=== PATIENT | female | born 1930 | race Caucasian/White ===

== ENCOUNTER → 2016-12-14 | Outpatient (CLI) | payer OTHER ==
[~2016-12-14] VITALS: Ht 162.6 cm; Wt 61.9 kg
[~2016-12-14] MED LIST: BUPRENORPHINE HC2 MG SL; BUTRANS1 EAC1 TD; CELEBREX 200 M200 MG PO; FLEXERIL PO; FOSAMAX 70 MG T70 MG PO; HALCION0.125 MG PO; LEVOTHYROXIN0.025 MG PO; MEDROLDOSEPACK PO; MULTIVITAMINS PO; NORCO 5-325 TA1 EACH PO; PROLIA60 MG/1 ML SQ; TIZANIDINE HCL4 MG PO
--- NOTE | ~2016-12-14 | HPC ---
[facility] [address] [place] [address] PAIN MANAGEMENT CONSULTATION Name: VILLATOROJIMENA A Room #: REG [facility].#: [id number] Admission: 12/14/16 Attend Phys: Andres Oconnor DO Discharge: Date of : 32 Report #: [id number] THIS REPORT FOR: //name// CC: Andres Scanlon DO DATE OF SERVICE: 12/14/2016 REFERRING PHYSICIAN: Perez Scanlon DO CHIEF COMPLAINT: Neck pain and upper back pain. HISTORY OF PRESENT ILLNESS: As you know, the patient is a very pleasant 86-year-old female who returns today in followup visit with complaints of chronic neck pain, upper back pain and bilateral shoulder pain. She indicates the pain sometimes is so intense, it climbs from the neck over the occiput towards the right ear. She indicates pain is aching, shooting and intermittent, describes pain level of 4/10, exacerbated with turning her head, improves with rest and medications. She has been referred back to our clinic to discuss chronic neck pain. ALLERGIES: No known drug allergies. CURRENT MEDICATIONS: Hydrocodone, cyclobenzaprine, multivitamin, Prolia, and levothyroxine. SOCIAL HISTORY: The patient denies tobacco, IV or illicit drug use. Admits to one alcoholic beverage per day. She is accompanied by her . She retired approximately 16 years ago. IMAGING: No new imaging available. PHYSICAL EXAMINATION: VITAL SIGNS: Blood pressure 146/80, pulse 66, respiratory rate 14, unlabored. The patient is 98% on room air. Height 5 feet 4 inches tall, weight 136.4 pounds, BMI calculated 23.4. GENERAL: Well-developed, well-nourished, well-hydrated 86-year-old female. She appears stated age, placing pain score today around 4/10. HEENT: Normocephalic and atraumatic. Pupils equal, round, reactive to light. Extraocular muscles are intact. Sclerae nonicteric without injection. NEUROLOGIC: Cranial nerves 2-12 grossly intact. Speech is fluent. The patient deemed an excellent historian. LUNGS: Clear. No wheeze, rhonchi or rales. CARDIOVASCULAR: Regular. No appreciable gallop or rub. ABDOMEN: Soft, nontender, nondistended. [address] [address] PAIN MANAGEMENT CONSULTATION Name: JIMENA VILLATORO Layla Room #: REG [facility].#: [id number] Admission: 12/14/16 Attend Phys: Andres Oconnor DO Discharge: Date of : 32 Report #: [id number] EXTREMITIES: Show no clubbing, no cyanosis, no edema. MUSCULOSKELETAL: Cervical provocation test including extension, rotation, lateral flexion all intensify neck pain. Slight forward flexion of the cervical spine does improve symptoms slightly. There is palpatory tenderness throughout the cervical region. No specific trigger points. Deep palpation in the upper cervical region causes intensification of pain that radiates mainly on the right side towards the lesser and greater occipital distribution. Upper extremity strength does appear equal and symmetrical. Spurlings test is negative. ASSESSMENT: 1. 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 2. Third occipital neuralgia. 3. Chronic intractable pain. PLAN: 1. The patient and I have had a long discussion today about the findings from physical exam. I believe her symptoms are related to cervical facet arthropathy with a component of third occipital neuralgia which is the sensation that the patient is experiencing radiating from the neck over the occiput and into the postauricular area. The patient and I did discuss at length the treatment options that are available for cervical generated pain. The conservative options tend to be the most practical in these kinds of cases. We discussed that changes need to be made in the pillow that she uses, recommending a contour pillow to adjust based on positioning. This has been an excellent treatment placing the cervical spine in more anatomical alignment during sleep, which typically resolves symptoms quite quickly. She will change out her pillow immediately. We also discussed medication changes to address facet arthropathy of the cervical spine. We also discussed medial branch nerve blocks, radiofrequency lesioning as more aggressive treatments. After reviewing risks and benefits of all the proposed treatment options, the patient chose to begin with conservative treatment. 2. The patient will be sent for x-ray imaging of the cervical spine. I wish to further evaluate the cervical region for the amount of arthritic changes that may be there. Given her age and her long-term pain generation, I assume moderate to severe facet changes will be noted, we will review the x-ray imaging once it is available and discussed with the patient the findings. 3. The patient will be started on Medrol Dosepak. This will provide good and immediate prolonged analgesia. She will start with Medrol Dosepak this evening. I did advise the patient to watch for side effects of insomnia, weight gain and flushing. She will begin this medication as quickly as possible. She was given this prescription with no refills. 4. We will start the patient on tizanidine 4 mg dose 1 tab p.o. q. 8 hours p.r.n. muscle spasms. I have given the patient #90 tablets, advised the patient to take the medication at home initially confirm that she is not sleepy, disoriented or confused with it. If she is doing well, then she can continue this three times a day. This is added for muscle spasming. [facility] [address] [place] [address] PAIN MANAGEMENT CONSULTATION Name: JIMENA VLILATORO [facility] [id number] Admission: 12/14/16 Attend Phys: Andres Oconnor DO Discharge: Date of : 32 Report #: [id number] 5. The patient was provided a prescription of hydrocodone 5/325 one tab p.o. q. 8 hours p.r.n for pain, given the patient #60 tablets, advised the patient to take this medication only when pain is intolerable, not to rely on the medication prophylactically. 6. The patient will contact our clinic about the findings of her x-ray imaging. We will trial this conservative treatment with the changes in pillow and medications and have her return in 2 weeks. If symptoms have not improved, we would recommend the discussion of intraarticular facet injections and third occipital nerve blocks possibility of moving towards radiofrequency lesioning. <ELECTRONICALLY SIGNED> By: Andres Oconnor DO 12/26/16 [id number] Andres Oconnor DO /nt
[2016-12-14 09:36] VITALS: BP 146/80
== END | disposition home or self-care (01) ==
LOC: PAIN 07:07
DX: M47.812 Spondylosis without myelopathy or radiculopathy, cervical region (principal); M54.81 Occipital neuralgia; G89.29 Other chronic pain

== ENCOUNTER → 2017-03-29 | Outpatient (CLI) | payer OTHER ==
[~2017-03-29] VITALS: Ht 162.6 cm; Wt 60.5 kg
--- NOTE | ~2017-03-29 | HPC ---
[facility] [address] [place] [address] PAIN MANAGEMENT CONSULTATION Name: JIMENA VILLATORO Room #: REG [facility] Tod#: [id number] Admission: 03/29/17 Attend Phys: Andres Oconnor DO Discharge: Date of : 32 Report #: [id number] THIS REPORT FOR: //name// CC: Andres Galindo DATE OF SERVICE: 03/29/2017 CHIEF COMPLAINT: Low back pain, lower extremity pain with paresthesias. HISTORY OF PRESENT ILLNESS: As you know, the patient is a very pleasant 86-year-old female who returns today in followup visit requesting epidural injection under fluoroscopic guidance. The patient states she has been quite active of late and her back pain has returned. As you are aware, we saw the patient initially for low back pain, lower extremity pain and paresthesias, diagnosed as a lumbar radiculopathy. We have been following the patient recently for neck pain, but now her symptoms have returned in the low back and she has requested epidural injection under fluoroscopic guidance to address these issues. She denies specific injury or trauma that may have led to symptoms. She is placing pain score anywhere from 1-7/10 depending on activity, lying down, walking and activities tend to exacerbate symptoms; rest, medications appear to improve pain. Majority of pain begins in low back, radiates down the left leg. ALLERGIES: SULFA. CURRENT MEDICATIONS: Hydrocodone, cyclobenzaprine, multivitamin, Prolia, levothyroxine. SOCIAL HISTORY: The patient denies tobacco, alcohol, IV or illicit drug use. She is accompanied by her . IMAGING: No new imaging available. PHYSICAL EXAMINATION: VITAL SIGNS: Blood pressure 120/68, pulse 70, respiratory rate 16, unlabored. The patient is 98% on room air. Height 5 feet 4 inches tall, weight 133.4 pounds, BMI calculated at 22.9. GENERAL: Well developed, well nourished, well hydrated 86-year-old female appearing stated age, placing current pain score at 1 to 7/10. HEENT: Normocephalic, atraumatic. Pupils equal, round, reactive to light. EXTREMITIES: Show no clubbing, no cyanosis, no edema. MUSCULOSKELETAL: Seated straight leg raising negative. Supine straight leg raising positive on left. Jessie test negative. Modified Gaenslen's positive for axial low back pain. [facility] [address] [place] [address] PAIN MANAGEMENT CONSULTATION Name: JIMENA VILLATORO Layla Room #: REG CLI [facility] [place]#: [id number] Admission: 03/29/17 Attend Phys: Andres Oconnor DO Discharge: Date of : 32 Report #: [id number] ASSESSMENT: 1. Symptomatic lumbar radiculopathy. 2. Spinal stenosis of the lumbar spine. 3. Displacement of lumbar intervertebral disk with radiculopathy. 4. Lumbosacral spondylosis with radiculopathy. 5. Lumbar degeneration. 6. Chronic intractable pain. PLAN: 1. The patient returns today in followup visit requesting epidural injection under fluoroscopic guidance. The patient has done very well with previous epidural injections, hopeful to see similar improvement today. She has been advised risks and benefits of procedure, states she understood and wished to proceed. The patient denies any new injury, new trauma that may have led to symptoms. I do feel that her symptom recurrence is due to the increasing activity that she has done over the past couple of weeks. The symptoms that she is experiencing do appear to be radicular in origin. I do feel this epidural injection would be beneficial. 2. No medication changes were made at today's visit. The patient to continue current medical therapy as previously prescribed. 3. The patient will return to our clinic on an as-needed basis for possible repeat epidural injection and discuss other treatment options. PROCEDURE NOTE DESCRIPTION OF PROCEDURE: L5-S1 left paramedian epidural steroid injection under fluoroscopic guidance. After obtaining written consent, the patient was taken back to fluoroscopy suite, placed in prone position with pillow under abdomen to decrease lumbar lordosis. Skin overlying lumbosacral area prepped and draped in aseptic fashion. Lumbar intervertebral spaces were identified by AP fluoroscopy. Skin and subcutaneous tissue overlying target site of injection was anesthetized with 3 mL of 1% lidocaine. A 20-gauge 3-1/2 inch Tuohy needle advanced under fluoroscopic guidance towards the epidural space using a left paramedian approach. Epidural space identified using loss of resistance to air technique. After negative aspiration for heme or cerebrospinal fluid, 1 mL of Omnipaque was injected. Lumbar epidurogram was confirmed using both AP and lateral fluoroscopy. After negative aspiration for heme or cerebrospinal fluid, 5 mL of a solution containing 2 mL 40 mg per mL, 80 mg total triamcinolone, 3 mL lidocaine 1% injected slowly. Needle retracted fdc, needle tract flushed 3 mL 1% lidocaine. Needle then removed. Sterile bandage placed over injection site. No new motor deficits present in the lower extremity following the procedure. [facility] [address] [place] [address] PAIN MANAGEMENT CONSULTATION Name: JIMENA VILLATORO Room #: REG NADEEM AguayoNate#: [id number] Admission: 03/29/17 Attend Phys: Andres Oconnor DO Discharge: Date of : 32 Report #: [id number] The patient tolerated procedure well, carefully escorted to the recovery in stable condition. No apparent complications. After meeting discharge criteria, the patient discharged home. By: [id number] Andres Oconnor DO /nt
[2017-03-29 08:44] VITALS: BP 120/68
== END ==
LOC: PAIN 06:47
DX: M47.27 Other spondylosis with radiculopathy, lumbosacral region (principal); M79.662 Pain in left lower leg; M51.16 Intervertebral disc disorders with radiculopathy, lumbar region

== ENCOUNTER → 2021-05-18 | Outpatient (CLI) | payer OTHER ==
[~2021-05-18] VITALS: Ht 160 cm; Wt 59.0 kg
[~2021-05-18] MED LIST changes: +CALCIUM PO; +HALCION0.25 MG PO; -LEVOTHYROXIN0.025 MG PO; +LIPITOR40 MG PO; +PROTONIX40 M2 PO; +SYNTHROID75 MC1 PO; +TOPROL XL25 MG PO; +VITAMIN C1000 MG PO; +VITAMIN D2 PO
[2021-05-18 08:59] VITALS: BP 151/76
--- NOTE | 2021-05-18 09:20 | NUR ---
Pain Clinic Assessment: 1. History of Osteoarthritis: * History of Rheumatoid Arthritis: Not Applicable 2. Height: 5 ft. 3 in. 160.0 cm. Weight: 130.0 lb. oz. 58.968 kg. Patient's BMI: 23.0 3. Vital Signs: BP: 151/76 Pulse: 60 Resp: 16 Temp: 02 Sat: 100 ECG Mon: 4. Pain Intensity: 3 5. Fall Risk: Dizziness: N Needs help standing or walking: N Fallen in the last 3 months: N Fall risk comments: 6. Patient on Blood Thinner: None 7. History of Hypertension: Y 8. Opioid Therapy greater than 6 weeks: Y Opiate Contract Signed: 9. Risk Assessment Tool Provided: LOW 10. Functional Assessment Tool: 11. Recreational Drug Use: Never Drug Type: Tobacco Use: Never Smoker Tobacco Type: Amount or Packs/day: How Many Years: Alcohol Use: Yes Frequency: Weekly Quant: 4-5
--- NOTE | 2021-05-19 07:43 | HPC ---
[facility] [place] [address] [place] [address] PAIN MANAGEMENT CONSULTATION Name: JIMENA VILLATORO Room #: REG NADEEM PierceNateAnnettaNate#: [id number] Admission: 05/18/21 Attend Phys: Andres Oconnor DO Discharge: Date of : 32 Report #: [id number] THIS REPORT FOR: cc: Perez Scanlon Timothy C. DO Johnson, James E. DO ~ DOC #: [id number] cc: DO Andres Lee DO DATE OF SERVICE: 05/18/2021 CHIEF COMPLAINT: Low back pain, bilateral lower extremity pain with paresthesias. HISTORY OF PRESENT ILLNESS: As you know, the patient is a very pleasant 89-year-old female returning in followup visit per the request of her primary care physician, Dr. Perez Scanlon to address low back pain, bilateral lower extremity pain with paresthesias. The patient has undergone epidural injections under fluoroscopic guidance in 2017 to address lumbar radicular symptoms with good efficacy. The patient has been lost to follow up visit since that time. She returns today as a new consult to discuss treatment options for recurrent low back pain, bilateral lower extremity pain with paresthesias. She reports she had new imaging obtained on 05/04/2021, which prompted the referral back to our clinic. She reports pain today at a level of 10/10 at its worst. She indicates no injury or trauma. Today, the patient reports pain is continuous. She describes the pain as shooting, cramping, aching, throbbing, sharp, stabbing, numbness and tingling. Places current pain score up to 10/10 daily average anywhere from 3-10/10, worst pain has been is 10/10. The patient states pain is exacerbated with lying down tends to worsen in the evening hours. It does lead to some weakness in the lower extremities. She has been referred to our clinic to discuss interventional treatment options to address suspected lumbar radiculopathy. PAST MEDICAL HISTORY: 1. Hypothyroidism. 2. Osteoporosis. 3. GERD. 4. Hypertension. 5. Dyslipidemia. 6. Insomnia. PAST SURGICAL HISTORY: None. SOCIAL HISTORY: The patient denies tobacco, alcohol or IV or illicit drug use. She is unaccompanied today. She is retired years ago. She is not in [place] [address] PAIN MANAGEMENT CONSULTATION Name: IRVINGJIMENA A Room #: REG NADEEM Baron#: [id number] Admission: 05/18/21 Attend Phys: Andres Oconnor DO Discharge: Date of : 32 Report #: [id number] in regards to her pain. IMAGING: MRI of the lumbar spine obtained on 05/04/2021 shows T2-L1 with a marked disk narrowing, moderate size central disk protrusion with effacement of the ventral thecal sac with minimal extradural mass effect upon the distal cord and conus. No cord edema. L1-2 disk space narrowing, posterior disk protrusion, no central canal neural foraminal stenosis L2-3, shows no central canal neural foraminal stenosis L4-5, marked disk narrowing, posterior degenerative changes of the disk with bulge, moderate degenerative changes. Canal shows mild central narrowing, neural foramen are normal. L4-5 disk narrowing and desiccation ,generalized posterior degenerative changes, moderate degenerative arthritis. No definitive central canal neural foraminal stenosis L5-S1, disk narrowing, disk desiccation. No central canal. No neural foraminal stenosis. PQRS: The patient has known arthritic changes of the cervical spine, lumbar spine. No rheumatoid arthritis. She is placing current pain intensity anywhere from 3-10/10. She is not a fall risk, has not had a fall in last 3 months. She is not on blood thinners, but is treated for hypertension. She is on chronic opioids, has a low opioid addiction potential. Pain impact 13 of 70 due to pain. PHYSICAL EXAMINATION VITAL SIGNS: Blood pressure 151/76, pulse 60, respiratory rate 16 and unlabored. The patient 100% on room air. Height 5 feet 3 inches tall, weight 130 pounds, BMI calculated 23.0. GENERAL: Well-developed, well-nourished, well-hydrated 89-year-old female appearing stated age, pain is rated today 3-10/10. HEENT: Normocephalic, atraumatic. Pupils equal, round and responsive. She is wearing a mask in compliance with COVID-19 regulations. LUNGS: Clear, no wheeze, rhonchi or rales. CARDIOVASCULAR: Regular. No appreciable gallop, no rub. ABDOMEN: Soft, nontender. EXTREMITIES: Show no clubbing, no cyanosis, no edema. MUSCULOSKELETAL: Lower extremity strength appears symmetrical 5/5. Muscle bulk and tone equal and symmetrical comparing lower extremities. Seated straight leg raising negative. Supine straight leg raising positive on the left, negative on right. Jessie's test is negative. Modified Gaenslen's positive for axial low back pain. She is intact to light touch from L1 through S2 dermatomes. Babinski is negative. Ankle clonus negative. Lumbar provocation testing is met with slight increase in pain. ASSESSMENT: 1. Symptomatic lumbar radiculopathy. 2. Displacement of lumbar intervertebral disk with radiculopathy. 3. Central canal stenosis of lumbar spine. [facility] [address] [place] [address] PAIN MANAGEMENT CONSULTATION Name: IRVINGJIMENA Room #: REG NADEEM Tod#: [id number] Admission: 05/18/21 Attend Phys: Andres Oconnor DO Discharge: Date of : 32 Report #: [id number] 4. Lumbar degeneration. PLAN: 1. Based on today's physical exam and the history, the patient provides, the distribution, the patient is experiencing pain upon as well as the descriptors, the patient uses in regards to pain and what appears she is suffering from lumbar radiculopathy. We discussed with the patient the findings of her MRI and discussed the findings of her physical exam. After this discussion, we then conversed about the treatment options, we have available. Following was discussed with the patient today. We discussed physical therapy, stretching exercises and core strengthening as a treatment approach. We discussed medication management utilizing nonsteroidal anti-inflammatories and neuropathic pain medications such as amitriptyline, nortriptyline, Cymbalta, Lyrica or gabapentin. We discussed epidural injections under fluoroscopic guidance, spinal cord stimulator therapy and ultimately surgical decompression. After reviewing risks and benefits of all proposed treatment options, the patient requested to begin with a lumbar epidural injection under fluoroscopic guidance. 1. The patient has been advised risks and benefits of a lumbar epidural injection. These risks include but are not necessarily limited to bleeding, bruising, infection, worsening pain, no relief of pain, also risk of temporary or permanent muscle weakness, temporary or permanent nerve damage, possible paralysis, post-dural puncture headache and . The patient states understood and wished to proceed. 2. No medication changes made at today's visit. The patient will continue current medical therapy as prior prescribed. 3. We will see the patient back in followup visit on an as needed basis for the next in the series of epidural injections. We did place the patient on a tentative schedule of 1 month from today. If she is doing well, she can cancel that appointment. Otherwise, we will see her back in 30 days. PROCEDURE NOTE DESCRIPTION OF PROCEDURE: L5-S1 left parasagittal epidural steroid injection under fluoroscopic guidance. This is the first procedure of the first series that the patient is undergoing. After obtaining written consent, the patient was taken back to the fluoroscopy suite, placed in a prone position with pillow under the abdomen to decrease lumbar lordosis. The skin overlying the lumbosacral area was then prepped and draped in aseptic fashion. The L5-S1 vertebral interspace was then identified by AP fluoroscopy. The skin and subcutaneous tissue overlying the target site of injection was anesthetized with 3 mL 1% lidocaine. [address] [address] PAIN MANAGEMENT CONSULTATION Name: JIMENA VILLATORO Room #: REG NADEEM Baron#: [id number] Admission: 05/18/21 Attend Phys: Andres Oconnor DO Discharge: Date of : 32 Report #: [id number] A 20 gauge 3.5 inch Tuohy needle was then advanced under fluoroscopic guidance towards the epidural space using a left parasagittal approach. The epidural space was identified using loss of resistance to air technique. After negative aspiration for heme or cerebrospinal fluid, a total of 1 mL of Omnipaque was injected. A lumbar epidurogram was confirmed using both AP and lateral fluoroscopy. After negative aspiration for heme or cerebrospinal fluid, 5 mL of a solution containing 2 mL 40 mg per mL 80 mg total triamcinolone along with 3 mL of lidocaine 1% was injected in increments. Contrast spread was noted on posterior epidural space. The needle was then retracted approximately half way and needle tract flushed with 1 mL of 1% lidocaine. Needle was then removed. There were no apparent sensory or motor deficits in the lower extremity following the procedure. A sterile bandage was placed over the injection site. The heart rate, pulse, oximetry and blood pressure were continuously monitored after the procedure. There were no apparent complications. The patient tolerated the procedure well and was carefully escorted to the recovery room in stable condition. There were no apparent complications. After meeting discharge criteria, the patient was then discharged home. Andres Oconnor DO JEJ/BULMARO <ELECTRONICALLY SIGNED> By: Andres Oconnor DO 05/19/21 [id number] [id number] Andres Oconnor DO /nt
== END | disposition home or self-care (01) ==
LOC: PAIN 06:49
PROVIDERS: ATTEND Anesthesiology Pain Medicine
DX: M51.16 Intervertebral disc disorders with radiculopathy, lumbar region (principal); M48.061 Spinal stenosis, lumbar region without neurogenic claudication; G89.29 Other chronic pain; I10 Essential (primary) hypertension; E78.5 Hyperlipidemia, unspecified; E03.9 Hypothyroidism, unspecified; K21.9 Gastro-esophageal reflux disease without esophagitis; M81.0 Age-related osteoporosis without current pathological fracture; G47.00 Insomnia, unspecified; Z98.890 Other specified postprocedural states; Z79.899 Other long term (current) drug therapy

== ENCOUNTER → 2021-09-21 | Outpatient (CLI) | payer OTHER ==
[~2021-09-21] VITALS: Ht 160 cm; Wt 56.7 kg
[2021-09-21 09:26] VITALS: BP 134/67
--- NOTE | 2021-09-21 09:33 | NUR ---
Pain Clinic Assessment: 1. History of Osteoarthritis: HANDS History of Rheumatoid Arthritis: Not Applicable 2. Height: 5 ft. 3 in. 160.0 cm. Weight: 125.0 lb. oz. 56.700 kg. Patient's BMI: 22.1 3. Vital Signs: BP: 134/67 Pulse: 64 Resp: 18 Temp: 02 Sat: 98 ECG Mon: 4. Pain Intensity: 4/5 5. Fall Risk: Dizziness: N Needs help standing or walking: N Fallen in the last 3 months: Y Fall risk comments: 6. Patient on Blood Thinner: None 7. History of Hypertension: Y 8. Opioid Therapy greater than 6 weeks: Y Opiate Contract Signed: 9. Risk Assessment Tool Provided: LOW 10. Functional Assessment Tool: 11. Recreational Drug Use: Never Drug Type: Tobacco Use: Never Smoker Tobacco Type: Amount or Packs/day: How Many Years: Alcohol Use: Yes Frequency: Daily Quant: ONE DRINK IN THE EVENING
--- NOTE | 2021-09-22 08:08 | HPC ---
[address] [address] PAIN MANAGEMENT CONSULTATION Name: JIMENA VILLATORO Room #: REG NADEEM AguayoNate#: [id number] Admission: 09/21/21 Attend Phys: Andres Oconnor DO Discharge: Date of : 34 Report #: [id number] THIS REPORT FOR: cc: Perez Scanlon,Andres Juares DO ~ cc: Perez Scanlon DO DATE OF SERVICE: 09/21/2021 REFERRING PHYSICIAN: Dr. Perez Scanlon. CHIEF COMPLAINT: Low back pain, bilateral lower extremity pain with paresthesias. HISTORY OF PRESENT ILLNESS: As you know, the patient is a very pleasant 89-year-old female, returning in followup visit, requesting a lumbar epidural injection under fluoroscopic guidance. The patient reports previous lumbar epidural injection provided at our last visit, gave improvement in symptoms of 95%, lasting for nearly 2 months. Unfortunately, the patient's symptoms have re-occurred. There has been no inciting injury or trauma. She returns today, requesting the next in a series of lumbar epidural injections to address residual pain for which she places symptoms at anywhere from 4-5/10. The patient reports no changes in medication management since her last visit that will preclude her from trialing an epidural injection today. ALLERGIES: SULFA. CURRENT MEDICATIONS: Halcion, ascorbic acid, vitamin D3, calcium, atorvastatin, metoprolol, pantoprazole, hydrocodone, multivitamin, DuoNeb, and levothyroxine. SOCIAL HISTORY: The patient reports she is a nonsmoker. Denies IV or illicit drug use. Admits to occasional alcohol beverage. She is retired, retired years ago, unaccompanied at today's visit. IMAGING: No new imaging available. PQRS: The patient has known arthritic changes of the cervical spine, lumbar spine, bilateral hips and knees. No rheumatoid arthritis. She is placing current pain at 4-5/10. She is not a fall risk, but has had a fall in the last 3 months, apparently tripping over an object at home. This has been rectified by removing that object from that position. She is not on blood thinners, but is treated for hypertension. She is on chronic opioids, has a low opioid addiction potential. Pain impact is 13 of 70, mild interference of daily activities secondary to pain. PHYSICAL EXAMINATION: [facility] [address] [place] [address] PAIN MANAGEMENT CONSULTATION Name: JIMENA VILLATORO [facility] #: [id number] Admission: 09/21/21 Attend Phys: Andres Oconnor DO Discharge: Date of : 34 Report #: [id number] VITAL SIGNS: Blood pressure 134/67, pulse 64, respiratory rate 18 and unlabored. The patient is 98% on room air. Height 5 feet 3 inches tall, weight 125 pounds. GENERAL: Well-developed, well-nourished, well-hydrated 89-year-old female appearing of stated age. Pain is rated today at 4-5/10. HEENT: Normocephalic, atraumatic. Pupils equal, round, and responsive to light. Extraocular muscles are intact. Speech fluent. The patient is deemed an excellent historian, wearing a mask in compliance with COVID-19 regulations. EXTREMITIES: Show no clubbing, no cyanosis, and no edema. MUSCULOSKELETAL: Lower extremity strength once again is symmetrical, 5/5. Seated straight leg raising is negative. Supine straight leg raising is positive on the left. There does not appear to be any radicular component on the right. Modified Gaenslen's is positive for axial low back pain. Jessie's test is negative. ASSESSMENT: 1. Symptomatic lumbar radiculopathy. 2. Displacement of lumbar intervertebral disk with radiculopathy. 3. Central canal stenosis of lumbar spine. 4. Lumbar degeneration. PLAN: 1. The patient returns today in followup visit, having noted excellent benefit with lumbar epidural injection provided at last visit. The patient reports a 95% improvement in overall pain with that procedure. She returns requesting next in the series. She has been advised risks and benefits of the procedure. She states she understood and wishes to proceed. 2. No medication change made at today's visit. The patient will continue current medical therapy as prior prescribed. 3. We plan to see the patient back in followup visit on an as-needed basis for the next in the series of lumbar epidural injections. We are hopeful the patient will once again see good and prolonged benefit with the injection provided today. PROCEDURE NOTE: DESCRIPTION OF PROCEDURE: L5-S1 left parasagittal epidural steroid injection under fluoroscopic guidance. After obtaining written consent, the patient was taken back to the fluoroscopy suite, placed in a prone position with pillow under the abdomen to decrease lumbar lordosis. The skin overlying the lumbosacral area was then prepped and draped in aseptic fashion. The L5-S1 vertebral interspace was then identified by AP fluoroscopy. The skin and subcutaneous tissue overlying the target site of injection was anesthetized with 3 mL 1% lidocaine. A 20-gauge 3-1/2 inch Tuohy needle was advanced under fluoroscopic guidance [address] [address] PAIN MANAGEMENT CONSULTATION Name: JIMENA VILLATORO Room #: REG [facility]#: [id number] Admission: 09/21/21 Attend Phys: Andres Oconnor DO Discharge: Date of : 32 Report #: [id number] towards the epidural space using a left parasagittal approach. The epidural space was identified using loss of resistance to air technique. After negative aspiration for heme or cerebrospinal fluid, 1 mL of Omnipaque was injected. A lumbar epidurogram was confirmed using both AP and lateral fluoroscopy. After negative aspiration for heme or cerebrospinal fluid, 5 mL of a solution containing 2 mL, 40 mg/mL, 80 mg total triamcinolone along with 3 mL of lidocaine 1% was injected slowly. The needle was retracted half way, flushed with 1 mL of 1% lidocaine and then removed. A sterile bandage was placed over the injection site. No new motor deficits present in lower extremity following the procedure. The patient tolerated the procedure well, carefully escorted to recovery room in stable condition. No apparent complications. After meeting discharge criteria, the patient was discharged home. <ELECTRONICALLY SIGNED> By: Andres Oconnor DO 09/22/21 0808 [id number] 1403 Andres Oconnor DO /nt
== END | disposition home or self-care (01) ==
LOC: PAIN 06:57
PROVIDERS: ATTEND Anesthesiology Pain Medicine
DX: M51.16 Intervertebral disc disorders with radiculopathy, lumbar region (principal); M48.061 Spinal stenosis, lumbar region without neurogenic claudication; G89.29 Other chronic pain; I10 Essential (primary) hypertension; M19.90 Unspecified osteoarthritis, unspecified site; Z98.890 Other specified postprocedural states; Z79.899 Other long term (current) drug therapy; Z79.891 Long term (current) use of opiate analgesic; Z88.2 Allergy status to sulfonamides